=== PATIENT | female | born 1975 | race Caucasian/White ===

== ENCOUNTER → 2022-10-11 | Outpatient (CLI) | payer OTHER ==
[~2022-10-11] MED LIST: Adipex-P37.5 M1 PO; Adipex-P37.5 MG; Cyclobenzaprine5 MG; FURO80; Flonase 0.05% N16 GM; POTCIT10; Synthroid175 MCG
[2022-10-11 18:05] LABS: Triiodothyronine, Free 1.92 pg/mL (2.18-3.98)
[2022-10-11 19:00] LABS: Free Thyroxine 1.54 ng/dL (0.70-1.60)
[2022-10-11 20:30] LABS: Thyroid Stimulating Hormone 1.29 uIU/mL (0.360-4.800)
== END | disposition home or self-care (01) ==
LOC: LAB 11:45 → LAB SHORT 11:45
PROVIDERS: Hospitalist
DX: E03.9 Hypothyroidism, unspecified (principal)
CPT/HCPCS: 84439; 84443; 84481

== ENCOUNTER → 2023-04-11 | Outpatient (CLI) | payer OTHER ==
[2023-04-11 22:17] LABS: Free Thyroxine 1.27 ng/dL (0.70-1.60)
[2023-04-11 22:21] LABS: Bun/Creatinine Ratio 31.4 (12.0-20.0); Calcium, Blood 8.7 mg/dL (8.5-10.1); Creatinine, Blood 0.8 mg/dL (0.40-1.00); Potassium, Blood 3.6 mmol/L (3.5-5.5); Thyroid Stimulating Hormone 1.04 uIU/mL (0.360-4.800); Triiodothyronine, Free 2.26 pg/mL (2.18-3.98)
== END | disposition home or self-care (01) ==
LOC: LAB SHORT 18:06 → LAB 18:06
PROVIDERS: Hospitalist
DX: E03.9 Hypothyroidism, unspecified (principal); R60.9 Edema, unspecified
CPT/HCPCS: 80048; 84439; 84443; 84481

== ENCOUNTER 2023-09-06 11:02 | Day surgery (SDC) | payer OTHER ==
[~2023-09-06] VITALS: Ht 167.6 cm; Wt 87.3 kg
[~2023-09-06 11:02] MED LIST changes: +K-Dur20 MEQ; +LEVSOD137; -POTCIT10; +PSEU120ER; -Synthroid175 MCG
[2023-09-06 13:58] VITALS: BP 103/73
== END 2023-09-06 13:28 | disposition home or self-care (01) ==
LOC: ORSCSDS 11:02
PROVIDERS: Internal Medicine Gastroenterology
PROC: 0DJD8ZZ Inspection of Lower Intestinal Tract, Via Natural or Artificial Opening Endoscopic (ICD-10-PCS; principal; 2023-09-06 12:30)
DX: Z12.11 Encounter for screening for malignant neoplasm of colon (principal); Z86.010 Personal history of colon polyps; K64.4 Residual hemorrhoidal skin tags; K57.30 Diverticulosis of large intestine without perforation or abscess without bleeding; Z79.899 Other long term (current) drug therapy
CPT/HCPCS: J2704; J7120